=== PATIENT | male | born 2000 | race Caucasian/White ===

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

== ENCOUNTER 2019-09-24 18:06 | Emergency (ER) | payer OTHER ==
[~2019-09-24] VITALS: Ht 172.7 cm; Wt 61.0 kg
[2019-09-24 18:41] LABS: HEMATOCRIT 41.4 % (39.0-50.0); HEMOGLOBIN 14.1 g/dl (14.0-18.0); IMMATURE GRANULOCYTES 0.1 % (0.0-5.0); MEAN CELL VOLUME 87.3 fL CALC (80.0-100.0); MEAN CORPUSCULAR HGB 29.7 pG CALC (26.0-32.0); MEAN CORPUSCULAR HGB CONC 34.1 g/dL CAL (32.0-36.0); NEUT# 5.35 thou/uL (1.82-7.42); RED BLOOD COUNT 4.74 mill/uL (4.70-6.10); RED CELL DISTRI WIDTH 12.1 % (11.5-15.5)
[2019-09-24 18:42] LABS: GFR > 60 ML/MIN (>=60 (CALC)); GFR FOR AFR.AMER. > 60 ML/MIN (>=60 (CALC))
[2019-09-24 19:19] LABS: ALBUMIN 4.7 g/dL (3.2-5.0); ALKALINE PHOSPHATASE 67 u/l (38-126); ANION GAP 11 (6-22 (CALC)); BILIRUBIN, TOTAL 0.9 mg/dL (0.0-1.4); BUN 13 mg/dL (9-20); BUN/CREATININE RATIO 12 (12-20 (CALC)); CARBON DIOXIDE 30 mmol/l (22-30); CHLORIDE 101 mmol/l (95-108); CREATININE 1.1 mg/dL (0.7-1.3); GFR > 60 ML/MIN (>=60 (CALC)); GFR FOR AFR.AMER. > 60 ML/MIN (>=60 (CALC)); POTASSIUM 3.6 mmol/l (3.5-5.1); SGOT/AST 27 u/l (17-59); SODIUM 138 mmol/l (137-146); TOTAL PROTEIN 6.8 g/dL (6.3-8.2)
[2019-09-24 20:30] VITALS: BP 132/67
== END 2019-09-24 20:46 | DRG 206 ==
LOC: ED 18:06
DX: S27.321A Contusion of lung, unilateral, initial encounter (principal); R04.2 Hemoptysis; W16.612A Jumping or diving into natural body of water striking water surface causing other injury, initial encounter; Y93.11 Activity, swimming; Y92.828 Other wilderness area as the place of occurrence of the external cause
CPT/HCPCS: Q9967

== ENCOUNTER 2022-07-30 11:25 | Emergency (ER) | payer SELFPAY ==
[~2022-07-30] VITALS: Ht 172.7 cm; Wt 61.2 kg
[2022-07-30 12:50] VITALS: BP 134/87
== END 2022-07-30 12:55 | disposition home or self-care (01) | DRG 914 ==
LOC: ED 11:25
DX: S89.91XA Unspecified injury of right lower leg, initial encounter (principal); W17.89XA Other fall from one level to another, initial encounter; Y93.39 Activity, other involving climbing, rappelling and jumping off

== ENCOUNTER 2022-10-21 08:53 | Emergency (ER) | payer MEDICAID ==
[2022-10-21] VITALS (8 sets, daily range): BP systolic 110–117; BP diastolic 74–80
[~2022-10-21] VITALS: Ht 172.7 cm; Wt 61.0 kg
[2022-10-21] MEDS ORDERED: IBUPROFEN600 MG PO (12:33)
[2022-10-21] MEDS ORDERED: METHOCARBAMOL500 MG PO (12:33)
== END 2022-10-21 12:46 | disposition home or self-care (01) ==
LOC: ED 08:53
DX: S20.212A Contusion of left front wall of thorax, initial encounter (principal); W50.0XXA Accidental hit or strike by another person, initial encounter

== ENCOUNTER 2023-03-15 06:00 | Emergency (ER) | payer SELFPAY ==
[2023-03-15] VITALS (15 sets, daily range): BP systolic 100–119; BP diastolic 50–76
[~2023-03-15] VITALS: Ht 172.7 cm; Wt 68.0 kg
[~2023-03-15 06:00] MED LIST changes: +IBUPROFEN600 MG PO; +METHOCARBAMOL500 MG PO
[2023-03-15 06:47] LABS: ALBUMIN 4.7 g/dL (3.2-5.0); ALKALINE PHOSPHATASE 37 u/l (38-126); BILIRUBIN, TOTAL 0.6 mg/dL (0.2-1.3); BUN 15 mg/dL (9-20); BUN/CREATININE RATIO 15 (12-20 (CALC)); CARBON DIOXIDE 26 mmol/l (22-30); CHLORIDE 108 mmol/l (95-108); ETHYL ALCOHOL 240 mg/dl (0-30); GFR FOR AFR.AMER. > 60 ML/MIN (>=60 (CALC)); GFR OTHER RACES > 60 ML/MIN (>=60 (CALC)); TOTAL PROTEIN 7.3 g/dL (6.3-8.2)
[2023-03-15 06:48] LABS: ANION GAP 17 (6-22 (CALC)); SGOT/AST 64 u/l (17-59); SODIUM 146 mmol/l (137-146)
[2023-03-15 06:49] LABS: BASO% 0.4 % (0-3); EOS% 2.2 % (0-8); HEMATOCRIT 45.4 % (39.0-50.0); HEMOGLOBIN 15.2 g/dl (14.0-18.0); IMMATURE GRANULOCYTES 0.1 % (0.0-5.0); LYMPH% 30.1 % (15-41); MEAN CELL VOLUME 93.2 fL CALC (80.0-100.0); MEAN CORPUSCULAR HGB 31.2 pG CALC (26.0-32.0); MEAN CORPUSCULAR HGB CONC 33.5 g/dL CAL (32.0-36.0); MONO% 6.6 % (2-13); NEUT# 5.44 thou/uL (1.82-7.42); NEUT% 60.6 % (42-76); RED BLOOD COUNT 4.87 mill/uL (4.70-6.10); RED CELL DISTRI WIDTH 12.3 % (11.5-15.5)
== END 2023-03-15 09:47 | disposition home or self-care (01) | DRG 897 ==
LOC: ED 06:00
PROVIDERS: Family Medicine
DX: F10.129 Alcohol abuse with intoxication, unspecified (principal); Y90.8 Blood alcohol level of 240 mg/100 ml or more

== ENCOUNTER 2024-02-04 10:37 | Emergency (ER) | payer SELFPAY ==
[2024-02-04] VITALS (8 sets, daily range): BP systolic 108–126; BP diastolic 70–80
[~2024-02-04] VITALS: Ht 172.7 cm; Wt 63.0 kg
[2024-02-04] MEDS ORDERED: CEPHALEXIN500 M1 PO (12:45)
[2024-02-04] MEDS ORDERED: Diph, Acellular Pertussis, Tet 0.5 ML/VIAL (Tdap) SDV IM ONE (12:45)
== END 2024-02-04 13:12 | disposition home or self-care (01) | DRG 605 ==
LOC: ED 10:37
DX: S81.811A Laceration without foreign body, right lower leg, initial encounter (principal); W22.8XXA Striking against or struck by other objects, initial encounter

== ENCOUNTER 2024-03-21 00:18 | Emergency (ER) | payer SELFPAY ==
[~2024-03-21] VITALS: Ht 172.7 cm; Wt 65.8 kg
[~2024-03-21 00:18] MED LIST changes: +CEPHALEXIN500 M1 PO
[2024-03-21] MEDS ORDERED: TETRACAINE HCL 0.5 %/4 ML SOL OS ONE (00:40)
[2024-03-21] MEDS ORDERED: FLUORESCEIN SODIUM 1 MG EA OU ONE (00:40)
[2024-03-21] MEDS ORDERED: GENTAMICIN SULFATE (OPHTH) 5 ML BTL OS ONE (01:05)
[2024-03-21] MEDS ORDERED: GENTAMICIN0.3 % OS (01:05)
[2024-03-21 01:30] VITALS: BP 140/86
== END 2024-03-21 01:30 | disposition home or self-care (01) | DRG 125 ==
LOC: ED 00:18
PROC: 08J1XZZ Inspection of Left Eye, External Approach (ICD-10-PCS; principal; 2024-03-21)
DX: T15.12XA Foreign body in conjunctival sac, left eye, initial encounter (principal); W44.9XXA Unspecified foreign body entering into or through a natural orifice, initial encounter; Y93.89 Activity, other specified; Y92.89 Other specified places as the place of occurrence of the external cause; Y99.0 Civilian activity done for income or pay